=== PATIENT | male | born 1975 | race Caucasian/White ===

== ENCOUNTER 2021-11-16 14:30 | Emergency (ER) | payer OTHER, SELFPAY ==
--- NOTE | ~2021-11-16 | XR_ITS ---
XR finger 3rd RT min 2V 11/16/2021 14:48 INDICATION: Right third finger pain after laceration PROCEDURE: 4 views right third finger COMPARISON: No prior studies for comparison. FINDINGS: Fracture, dislocation or subluxation is not identified. The soft tissues appear within norm al limits. No foreign bodies are identified. IMPRESSION: 1: NO ACUTE BONE OR JOINT ABNORMALITY IDENTIFIED. Reviewed, dictated and finalized at location A.
--- NOTE | ~2021-11-16 | XR_ITS ---
This report was recreated 11/29/2021. Original report was signed by Lane Tinoco M.D. on 11/16/2021 14:58 CDT XR finger 3rd RT min 2V 11/16/2021 14:48 INDICATION: Right third finger pain after laceration PROCEDURE: 4 views right third finger COMPARISON: No prior studies for comparison. FINDINGS: Fracture, dislocation or subluxation is not identified. The soft tissues appear within normal limits. No foreign bodies are identified. IMPRESSION: 1: NO ACUTE BONE OR JOINT ABNORMALITY IDENTIFIED. Reviewed, dictated and finalized at location A. Dictated By: Lane Tinoco MD 11/16/21 1453 Signed By: <Electronically signed by Lane Tinoco MD in [place]> 11/16/21 1458 [facility]
--- NOTE | 2021-11-16 14:44 | ED.WOUNDLAC ---
HPI - Wound/Laceration General Chief Complaint: Wound/Laceration Stated Complaint: right hand midde finger Time Seen by Provider: 11/16/21 14:55 Source: patient and RN notes reviewed Mode of arrival: ambulatory Limitations: no limitations History of Present Illness HPI narrative: 46-year-old male presents with concern for crush injury to the third digit of the right hand. Reports he smashed between the wrench and concrete. He is not up-to-date on his tetanus vaccination. Reports injury happened just prior to arrival. Related Data Home Medications Medication Instructions Recorded Confirmed No Home Medications 11/16/21 11/16/21 Allergies Allergy/AdvReac Type Severity Reaction Status Date / Time No Known Allergies Allergy Mild Unverified 12/06/08 11:06 Review of Systems Review of Systems: CONSTITUTIONAL: Denies malaise, chills, sweats, or fever. SKIN: Reports laceration to the third digit of the right hand MUSCULOSKELETAL: Denies muscle skeletal pain NEUROLOGIC: Denies numbness, weakness All systems reviewed & are unremarkable except as noted in HPI and below PMFSH Comments At time of signature, agree with nursing past medical, surgical, social and family history. There is no relevant family history pertinent to the presenting complaint Exam Narrative: GENERAL: Well-appearing, well-nourished, and in no acute distress. HEAD: Normocephalic EYES: PERRLA, conjunctivae clear NECK: Supple. CHEST: Speaks in full sentences. No respiratory distress. HEART: Regular rate and rhythm. Normal and equal peripheral pulses. EXTREMITIES: Right hand and digits of hand have normal strength and sensation. 5/5 strength with digit flexion, extension. Range of motion normal. No cyanosis noted. General distal digit edema and tenderness. Normal digital cascade with flexion of fingers, median, ulnar and radial nerve intact. Normal sensation of each side of finger.No scissoring. Normal thumb opposition. Good capillary refill and radial pulse. Distal capillary refill less than 3 seconds. SKIN: Warn, dry, intact, pink. No rash NEURO: Alert and oriented x3. PSYCH: Normal mood and affect Course Course Emergency Course: Patient is aware of diagnosis, understands and agrees to treatment plan. Anticipatory guidance given. Patient agrees to follow-up as directed and is aware of reasons to seek care at the emergency department. Portions of this record may have been created with voice recognition software Level of Care: [facility] Visit Vital Signs Vital signs: Vital Signs Temperature 97.5 F L 11/16/21 14:53 Pulse Rate 90 11/16/21 14:53 Respiratory Rate 16 11/16/21 14:53 Blood Pressure 139/87 11/16/21 14:53 Pulse Oximetry 98 11/16/21 14:53 Temperature 97.5 F L 11/16/21 14:53 Pulse Rate 90 11/16/21 14:53 Respiratory Rate 16 11/16/21 14:53 Blood Pressure 139/87 11/16/21 14:53 Pulse Oximetry 98 11/16/21 14:53 Reviewed. Procedures Laceration Laceration 1: Date: 11/16/21 Time: 15:36 Site: hand Side (If applicable): right Size (cm): 3 Description: irregular Depth: simple, single layer Local Anesthetic: lidocaine 1% Amount of anesthesia used (mL): 3 Pre-repair: wound explored, irrigated extensively and wound margins revised ====== Skin Level ====== Skin layer closed with: nylon Size (cm): 5-0 Number of sutures: 14 ====== Subcutaneous Layer ====== ====== Muscle Layer ====== ====== Tendon Layer ====== MDM - Wound/Laceration MDM Narrative Medical decision making narrative: Wound explored for foreign body and copious irrigation provided with no evidence of FB. Discussed the potential of retained foreign body with the patient and signs/symptoms that should prompt the patient to immediately go to the ED for reevaluation. The laceration was identified to be 3 cm in length and located at third digi
[2021-11-16 14:53] VITALS: BP 139/87; PULSE 90; RESP 16; TEMP 36.4; O2SAT 98
[2021-11-16] MEDS: TETANUS,DIPHTHERIA,AC PERTUSSIS ADULT (0.5 ML) BOOSTRIX IM (15:39)
== END 2021-11-16 16:33 | disposition home or self-care (01) ==
PROVIDERS: Emergency Provider Nurse Practitioner; PCP Internal Medicine
DX: S61.212A Laceration without foreign body of right middle finger without damage to nail, initial encounter (principal); X58.XXXA Exposure to other specified factors, initial encounter; Z23 Encounter for immunization
CPT/HCPCS: 12002; 73140; 90471; 90715; 99203; G0463